=== PATIENT | female | born 1925 | race Asian ===

== ENCOUNTER 2016-12-04 15:36 | Emergency (ER) | payer MEDICARE, OTHER ==
[~2016-12-04] VITALS: Ht 147.3 cm; Wt 45.4 kg
[2016-12-04] MEDS ORDERED: NKM (15:38)
[2016-12-04 15:44] VITALS: BP 121/73
--- NOTE | 2016-12-04 16:04 | Emergency Room Report ---
History of Present Illness General Chief Complaint: General Complaint Source: Patient, EMS Present Illness HPI [id number] BIBEMS after alleged fall in the street using walker to ambulate to [facility]. Denies hitting head. Denies any pain, injury. Feels well otherwise. Denies taking medications, med problems. Doesnt have a PMD. Wants to go home. Ambulating in ED with walker, feels as per baseline. Allergies: Coded Allergies: No Known Allergies (Unverified , 12/27/14) Patient History Past Medical History: none Past Surgical History: none Pertinent Family History: none Social History: Denies: alcohol use, drug use, smoking Now: No Immunizations: UTD Reviewed Nursing Documentation: PMH: Agreed, PSxH: Agreed Nursing Documentation-PMH Past Medical History: No Stated History Hx Hypertension: Yes Review of Systems All Other Systems: negative except mentioned in HPI Physical Exam Vital Signs Date Time Temp Pulse Resp B/P Pulse Ox O2 Delivery O2 Flow Rate FiO2 12/04/16 15:34 100.2 96 16 121/73 100 Room Air Sp02 EP Interpretation: reviewed, abnormal General Appearance: normal inspection, well appearing, no apparent distress, alert, GCS 15, non-toxic Head: normocephalic, atraumatic Eyes: bilateral eye EOMI, bilateral eye PERRL ENT: normal ENT inspection, hearing grossly normal, normal voice Neck: normal inspection, full range of motion, supple, no bony tend Respiratory: normal inspection, lungs clear, normal breath sounds, no rhonchi, no respiratory distress, no retraction, no accessory muscle use, no wheezing Cardiovascular #1: regular rate, rhythm, no edema Gastrointestinal: normal inspection, normal bowel sounds, non tender, soft, no guarding, no hernia Genitourinary: no CVA tenderness Musculoskeletal: normal inspection, back normal, normal range of motion, Rola' s Sign negative Neurologic: normal inspection, alert, oriented x3, responsive, pitch gatherer III-XII nml as tested, motor strength/tone normal, speech normal Psychiatric: normal inspection, judgement/insight normal, mood/affect normal Skin: normal inspection, normal color, no rash, warm/dry Lymphatic: normal inspection Medical Decision Making Diagnostic Impression: Primary Impression: Fall Qualified Codes: W19.XXXA - Unspecified fall, initial encounter ER Course Accidental fall. GCS 15. VSS. Temp 100.2F No obvious signs of trauma from head-to-toe exam Asymptomatic Ambulating in ED as per baseline Patient's elevated temperature likely from wearing multiple layers of clothing in the sun No obvious signs of infection - denies urinary complaints, chest pain/SOB, cough , abd pain, headache Patient strongly desires to go home - we provided van ride service home Understands to return to ER for any concerns later today Last Vital Signs Date Time Temp Pulse Resp B/P Pulse Ox O2 Delivery O2 Flow Rate FiO2 12/04/16 15:50 100.2 96 16 121/73 100 Room Air Status: improved Disposition: HOME, SELF-CARE Condition: Improved Referrals: NOT CHOSEN IPA/MD,REFERRING (PCP) Patient Instructions: Fall Prevention in the Home, [id number] NEVILLE PABLO M.D. Dec 04, 2016 16:03
== END 2016-12-04 16:05 | disposition home or self-care (01) ==
LOC: EDBD 15:36 → EMR 15:56
DX: Z04.3 Encounter for examination and observation following other accident (principal); Z91.81 History of falling; I10 Essential (primary) hypertension
CPT/HCPCS: 99283